=== PATIENT | female | born 1930 | race Caucasian/White ===

== ENCOUNTER 2017-06-29 12:25 | Day surgery (SDC) | payer OTHER ==
[~2017-06-29] VITALS: Ht 157.5 cm; Wt 48.0 kg
[~2017-06-29 12:25] MED LIST: ASPIRIN81 M2 PO; CALCIUM 600 +1 EA16 PO; COUMADIN3 MG PO; COUMADIN4 MG PO; DIGOXIN125 MCG PO; DILTIAZEM 24HR180 MG PO; MIRALAX17 GM PO; TYLENOL EXTRA500 MG PO
== END 2017-06-29 15:55 | disposition home or self-care (01) ==
LOC: CATH 12:25
DX: Z45.010 Encounter for checking and testing of cardiac pacemaker pulse generator [battery] (principal); I49.5 Sick sinus syndrome; I48.0 Paroxysmal atrial fibrillation; E78.5 Hyperlipidemia, unspecified; I10 Essential (primary) hypertension; J44.9 Chronic obstructive pulmonary disease, unspecified; Z85.3 Personal history of malignant neoplasm of breast; Z95.0 Presence of cardiac pacemaker; Z79.82 Long term (current) use of aspirin; Z79.01 Long term (current) use of anticoagulants
CPT/HCPCS: C1785; J0690; J1200; J2250; J3010; S0020